=== PATIENT | male | born 1945 | race Caucasian/White ===

== ENCOUNTER 2017-05-10 09:02 | Day surgery (SDC) | payer MEDICARE, BC ==
[~2017-05-10] VITALS: Ht 162.6 cm; Wt 63.6 kg
[~2017-05-10 09:02] MED LIST: ASPI81 PO; METO100T PO; NITR0.4S SL; OMEGCAP2 OR; VITA400C28 PO; VYTO10TA35 PO
[2017-05-10] MEDS ORDERED: IOHEXOL 350 MG/ML 100 ML BTL (for Cath Lab) OTHER ONE (09:03)
[2017-05-10] MEDS ORDERED: ISOS60TA PO (09:33)
[2017-05-10] MEDS ORDERED: NITR0.4S SL (09:33)
[2017-05-10] MEDS ORDERED: ROSU20 PO (09:33)
[2017-05-10] MEDS ORDERED: ASPI-516 CHEW (09:33)
[2017-05-10] MEDS ORDERED: METO25TA3 PO (09:33)
[2017-05-10 09:36] VITALS: BP 126/81; PULSE 63; RESP 17; TEMP 98.8; O2SAT 97
[2017-05-10] MEDS ORDERED: diphenhydrAMINE HCL 50 MG/ML VIAL IV PUSH SCH (09:45)
[2017-05-10] MEDS ORDERED: NS 1000 ML @100 MLS/HR IV SCH (09:45)
[2017-05-10] MEDS ORDERED: ASPIRIN 325 MG TAB PO SCH (09:45)
[2017-05-10 10:45] LABS: AUTOMATED NEUTROPHIL # 3.7 TH/MM3 (1.8-7.7); BASOPHIL % 0.5 % (0.0-2.0); EOSINOPHIL # 0.2 TH/MM3 (0-0.4); EOSINOPHIL % 2.4 % (0.0-4.0); HEMATOCRIT 45.5 % (39.0-51.0); HEMO FLAGS DIFF FINAL; LYMPH % 29.8 % (9.0-44.0); LYMPHOCYTE # 1.9 TH/MM3 (1.0-4.8); MEAN CELL VOLUME 98.9 FL (80.0-100.0); MEAN CORPUSCULAR HEMOGLOBIN 34.1 PG (27.0-34.0); MEAN CORPUSCULAR HGB CONC 34.5 % (32.0-36.0); MONO % 9.7 % (0.0-8.0); NEUT % 57.6 % (16.0-70.0); PLATELET COUNT 244 TH/MM3 (150-450); RED CELL DISTRIBUTION WIDTH 13.1 % (11.6-17.2); WHITE BLOOD COUNT 6.5 TH/MM3 (4.0-11.0)
[2017-05-10 10:56] LABS: APTT (PATIENT) 27.3 SEC (24.3-30.1); INTERNATIONAL NORMALIZED RATIO 1.1 RATIO; PROTHROMBIN TIME - PATIENT 11.5 SEC (9.8-11.6)
[2017-05-10] MEDS ORDERED: HEPARIN-NS/PF INJ 1,000 ML ONE (10:57)
[2017-05-10] MEDS ORDERED: diphenhydrAMINE HCL 50 MG/ML VIAL ONE (10:57)
[2017-05-10] MEDS ORDERED: MIDAZOLAM HCL 2 MG/2 ML VIAL ONE (10:58)
[2017-05-10 11:05] LABS: BICARBONATE 28.9 MEQ/L (21.0-32.0); POTASSIUM 3.7 MEQ/L (3.5-5.1)
--- NOTE | 2017-05-10 13:24 | CATHPROC ---
[facility] HIS Report Study Information Study Number Admission Scheduled Start Study Start [id number] May 10 2017 9:02AM 05/10/2017 May 10 2017 10:45AM [place] [facility] Cardiac Catheterization Admit Source Facility Department Other [facility] - Continuous Improvement Coach Physician and Clinical Staff Initial Mg Chawla Music Director Mariela Livingston RN Music Director Brian ARRIOLA, Prabhakar Arriaza cathlab, cathlab Recorder Shana Nelson,MACHINE SPRAYER TECH2 Scrub Nancy Figueroa,OUTPATIENT SCHEDULER TECH2 Procedures Performed Procedure Location (Site) Vessel Name Angiogram LV LV Ventricle Coronary Angiograms LCA Left Coronary Coronary Angiograms RCA Right Coronary L Heart Cath Equipment Time Margarine Maker Description Size Mfg Part Number Used/Scraped STARCLOSE, VASCULAR CLOSER [id number] 13:03 [employer] FR 6 Used SYSTEM *[id number] TRANSDUCER, TRUWAVE [id number] 10:46 COREAS HORNE * Used W/STOCKCOCK *[id number] 534-620T *[id number] 534-621T *[id number] PIGTAIL ANG. 145 INFINITI 534-652S CATHETER *[id number] 10:46 VetCloud INDUSTRIES PACK, CCL CUSTOM * Used *[id number] 10:46 VetCloud PACER PEN, SKIN DUAL W/ RULER * Used *[id number] 10:46 WeShow MEDICAL SHEATH, FR6.5 PRELUDE 11CM FR 6.5 038ACT Used *[id number] 10:46 [employer]Show MEDICAL WIRE, 3MMJ .035 180CM 180CM Used *[id number] 10:46 NAMIC MANIFOLD, 4 PORT * Used *[id number] 10:46 NYCOMED OMNIPAQUE, 350 MG, 150ML 150ML [id number] Used 12:55 NYCOMED OMNIPAQUE, 350 MG, 50ML 50ML [id number] Used [id number] 10:46 ROBERT MEDICAL BLANKET,WARM AIR CCL * Used *[id number] History: Current Medications Medication Dosage/Unit Route Frequency Last Date/Time Taken ASA CRESTOR NTG SL History: Allergies Allergy Reaction No Known Allergies History: Risk Factors Family History of Hypertension Dyslipidemia Previous DC Previous Heart Failure Premature CAD No Yes No No No Prior Valve Prior PCI Prior PCIDate Prior CABG Surgery No Yes 05/22/2005 No Cerebrovascular Peripheral Artery Chronic Lung On Dialysis Diabetes Disease Disease Disease No No No No No History: CV Disease Selection Items Known CAD History: Stress Tests Stress or Imaging Studies Performed Yes Standard Exercise Stress Test No Stress Echo No Stress Test SPECT No Stress Test CMR Stress Test CMR Result Yes Indeterminant Cardiac CTA Coronary Calcium Score No No History: Other Disease Selection Items CAD History: DC/CV Data Previous Cath Date 05/22/2005 History: Other Current Smoker Method Quit Packs a Day Years Used Pack Years No Cigarettes 11 Years Ago 1 36 36 Labs Hgb (g/dl) Hct (%) RBC (MIL/MM3) WBC (l/cumm) Platelets (thousands) 11.60-17.00 35.00-51.00 4.00-5.90 4.00-11.00 150.00-450.00 15.7 45.5 4.6 6.5 244 Glucose (mg/dl) BUN (mg/dl) Creatinine (mg/dl) BUN:Creatinine (1:x) 74.00-106.00 7.00-18.00 0.50-1.30 10.00-20.00 86 14 1.1 12.7 Na (meq/l) K (meq/l) Cl (meq/l) CO2 (mmol/L) 136.00-145.00 3.50-5.10 98.00-107.00 21.00-32.00 143 3.7 109 28.9 PT (sec) PTT (sec) INR (PTT:PT) 9.80-11.60 24.30-30.10 0.90-1.10 11.5 27.3 1.1 Medication Medication Total Dose (Bolus/Oral) Medication Total Dosage/Unit 1% XYLOCAINE 20 mL FENTANYL 25 mcg HEPARIN 1000 units OXYGEN 2 l/min VERSED 2 mg Medications (Bolus/Oral) Medication Time Given Dosage/Unit Administered By Reason 05/10/2017 12:40:53 1% XYLOCAINE 20 mL Mg Villafana PM 20 mL 1% XYLOCAINE given in lab by Mg Villafana in Right Groin via Subcutaneous. Ordered by Mg Villafana. 05/10/2017 12:41:25 VERSED 2 mg Prabhakar Torres RN PM 2 mg VERSED given in lab by Prabhakar Torres RN in Left Antecubital via Peripheral IV. Ordered by Mg Villafana. 05/10/2017 12:42:39 FENTANYL 25 mcg Prabhakar Torres RN PM 25 mcg FENTANYL given in lab by Prabhakar Torres RN in Left Antecubital via Peripheral IV. Ordered by Mg Nunes. 05/10/2017 12:43:55 HEPARIN 1000 units Mg Villafana PM 1000 units HEPARIN given in lab by Mg Villafana in Right Groin via Peripheral IV. Ordered by Mg Villafana. 05/10/2017 12:45:07 OXYGEN 2 l/min Prabhakar Torres RN PM 2 l/min OXYGEN given in lab by Prabhakar Torres RN via Nasal. Ordered by Mg Villafana. Medication (Drip) Medication Time Given Dosage/Unit Concentration/Unit Diluent (ml) Solution 05/10/2017 10:54:22 IV Solutions 0 mL (IV) 500 NaCl .9 AM Patient arrived on IV Solutions given by cathlab, cathlab in Left Antecubital via Peripheral IV. Pump /Drip Flow = 100 ml/hr using NaCl .9. Ordered by Mg Villafana. Initial Case Assessment Cardiovascular HR NIBP 63 10/61 Edema Present Skin color Skin None Normal Warm Dry Circulatory - Right Pulses Dorsalis Pedis Femoral 3 3 Scale (0,1,2,3,4,d) Circulatory - Left Pulses Dorsalis Pedis Femoral 3 3 Scale (0,1,2,3,4,d) Neurological State Oriented to time-place- Alert Moves all extremities person Respiration - General Respiration Rate SpO2 (%) (B/min) 13 98 Final Case Assessment Cardiovascular HR NIBP 66 105/62 Edema Present Skin color Skin None Normal Warm Dry Circulatory - Right Pulses Dorsalis Pedis Femoral 3 3 Scale (0,1,2,3,4,d) Circulatory - Left Pulses Dorsalis Pedis Femoral 3 3 Scale (0,1,2,3,4,d) Neurological State Oriented to time-place- Alert Moves all extremities person Respiration - General Respiration Rate SpO2 (%) (B/min) 13 96 Chronological Log Time Study Chronological Log 10:53:58 Patient arrived via Bed. 10:53:59 Patient Name, D.O.B, / Armband Verified By R.N. 10:54:00 Consent signed by the physician and the patient and verified by the Continuous Improvement Coach staff. 10:54:03 Pre-op and post- op instructions given; patient acknowledges understanding of instructions. 10:54:08 Patient has been NPO for More than 6Hrs. 10:54:09 Skin Breakdown- 10:54:21 A # 20 IV was noted in the Antecubital (left). Grade = 0 Patient arrived on IV Solutions given by cathlab, cathlab in Left Antecubital via Peripheral IV . Pump/Drip Flow = 100 10:54:22 ml/hr using NaCl .9. Ordered by Mg Villafana. 10:54:27 History and physical on the chart or being dictated. Vitals capture started with the following parameters, Patient=Adult, Interval=5 min, Initial Pr ogyfyy=846 mmHg, 11:00:25 Deflation Rate=5 mmHg, Cuff placed on Left Arm 11:00:40 Reference ECG taken 11:01:04 HR=63 bpm, DFOR=133/61 mmhg, SpO2=98.0 %, Resp=13 B/min, Pain=0, Milvia=10, Knapp=2 Assessment: Initial Case, HR=63 BPM, NIBP=10/61 mmhg, Edema=None, Color=Normal, Skin = Warm, Dr y Right Pulses: Francisco Ped=3, Femoral=3 11:01:29 Left Pulses: Francisco Ped=3, Femoral=3 Neurological: State=Alert, Ox3, THORPE Respiration: Resp=13 B/min, SpO2=98 % 11:06:34 HR=65 bpm, PGGH=592/73 mmhg, SpO2=98.0 %, Resp=16 B/min, Pain=0, Milvia=10, Knapp=2 11:10:58 HR=63 bpm, PIBV=916/80 mmhg, SpO2=98.0 %, Resp=18 B/min, Pain=0, Milvia=10, Knapp=2 11:12:22 Bilateral groins prepped with 2% chlorhexidine, and draped after a 3 minute waiting time. 11:15:57 HR=60 bpm, BPZR=225/67 mmhg, SpO2=97.0 %, Resp=12 B/min, Pain=0, Milvia=10, Knapp=2 11:17:11 Pressure channel 1 zeroed. 11:20:56 HR=60 bpm, LKJP=861/67 mmhg, SpO2=95.0 %, Resp=15 B/min, Pain=0, Milvia=10, Knapp=2 11:25:55 HR=62 bpm, CPHQ=367/74 mmhg, SpO2=95.0 %, Resp=11 B/min, Pain=0, Milvia=10, Knapp=2 11:30:58 HR=64 bpm, EBTX=768/64 mmhg, SpO2=94.0 %, Resp=18 B/min 11:36:00 HR=59 bpm, WOUJ=599/73 mmhg, SpO2=95.0 %, Resp=16 B/min, Pain=0, Milvia=10, Knapp=2 11:41:01 HR=62 bpm, IPDZ=236/64 mmhg, SpO2=96.0 %, Resp=11 B/min, Pain=0, Milvia=10, Knapp=2 11:46:02 HR=58 bpm, RPGD=215/66 mmhg, SpO2=95.0 %, Resp=7 B/min, Pain=0, Milvia=10, Knapp=2 11:51:48 HR=66 bpm, NIBP=85/73 mmhg, SpO2=96.0 %, Resp=12 B/min, Pain=0, Milvia=10, Knapp=2 11:57:11 HR=68 bpm, FRMV=456/80 mmhg, SpO2=96.0 %, Resp=15 B/min, Pain=0, Milvia=10, Knapp=2 12:01:03 HR=62 bpm, HAUC=839/73 mmhg, SpO2=96.0 %, Resp=18 B/min, Pain=0, Milvia=10, Knapp=2 12:06:41 HR=65 bpm, ENAY=904/70 mmhg, SpO2=95.0 %, Resp=8 B/min, Pain=0, Milvia=10, Knapp=2 12:11:07 HR=64 bpm, IMQY=583/65 mmhg, SpO2=95.0 %, Resp=12 B/min, Pain=0, Milvia=10, Knapp=2 12:16:04 HR=65 bpm, CXOM=829/69 mmhg, SpO2=94.0 %, Resp=11 B/min, Pain=0, Milvia=10, Knapp=2 12:21:05 HR=65 bpm, NWXH=617/78 mmhg, SpO2=95.0 %, Resp=16 B/min, Pain=0, Milvia=10, Knapp=2 12:26:33 HR=62 bpm, WQAK=335/69 mmhg, SpO2=95.0 %, Resp=15 B/min, Pain=0, Milvia=10, Knapp=2 12:31:17 HR=66 bpm, VAFL=140/37 mmhg, SpO2=96.0 %, Resp=10 B/min, Pain=0, Milvia=10, Knapp=2 12:34:10 MD arrived. 12:36:08 HR=64 bpm, WQJU=560/75 mmhg, SpO2=94.0 %, Resp=15 B/min, Pain=0, Milvia=10, Knapp=2 Time Out. Correct patient, correct procedure, correct physician, power injector loaded with con trast with surgical team 12:39:58 present. Time Out Concurred by MD and individual staff in procedure. 12:40:00 Case Start 12:40:53 20 mL 1% XYLOCAINE given in lab by Mg Villafana in Right Groin via Subcutaneous. Ordered by Mg Villafana. 12:41:11 HR=61 bpm, XMII=640/66 mmhg, SpO2=96.0 %, Resp=12 B/min, Pain=0, Milvia=10, Knapp=2 12:41:25 2 mg VERSED given in lab by Prabhakar Torres RN in Left Antecubital via Peripheral IV. Ordered by Mg Villafana. 12:42:39 25 mcg FENTANYL given in lab by Prabhakar Torres RN in Left Antecubital via Peripheral IV. Orde red by Mg Villafana. 12:42:56 Access site was Right Femoral Artery. 12:43:15 A SHEATH, FR6.5 PRELUDE 11CM FR 6.5 was advanced into the Fem Art (right) using the Andrey holman Seldinger technique. 12:43:55 1000 units HEPARIN given in lab by Mg Villafana in Right Groin via Peripheral IV. Ordered by Mg Villafana. 12:45:07 2 l/min OXYGEN given in lab by Prabhakar Torres RN via Nasal. Ordered by Mg Villafana. A JL 4.0 INFINITI CATHETER FR 6 was advanced over a wire. OMNIPAQUE, 350 MG, 150ML 150ML was us ed for 12:45:54 injections. 12:46:10 HR=66 bpm, OBTT=518/63 mmhg, SpO2=92 %, Resp=15 B/min, Pain=0, Milvia=10, Knapp=2 Recorded Pressure: Ao, HR=66, Condition=Condition 1 12:46:42 (Aorta) Ao 88/53/69 12:48:32 The LCA was injected and visualized at various angles. OMNIPAQUE, 350 MG, 150ML 150ML used . 12:51:02 Catheter was removed A JR 4.0 INFINITI CATHETER FR 6 was advanced over a wire. OMNIPAQUE, 350 MG, 150ML 150ML was us ed for 12:51:03 injections. 12:51:07 HR=59 bpm, NIBP=99/60 mmhg, SpO2=95.0 %, Resp=13 B/min, Pain=0, Milvia=10, Knapp=2 12:52:41 The RCA was injected and visualized at various angles. OMNIPAQUE, 350 MG, 150ML 150ML used . 12:54:45 Catheter was removed A JR 4.0 INFINITI CATHETER FR 6 was advanced over a wire. OMNIPAQUE, 350 MG, 150ML 150ML was us ed for 12:54:48 injections. 12:56:06 HR=64 bpm, VBRN=573/63 mmhg, SpO2=96.0 %, Resp=15 B/min, Pain=0, Milvia=10, Knapp=2 12:57:18 Catheter was removed A PIGTAIL ANG. 145 INFINITI CATHETER FR 6 was advanced over a wire. OMNIPAQUE, 350 MG, 50ML 50M L was used 12:57:29 for injections. Recorded Pressure: LV, HR=63, Condition=Condition 1 12:59:02 (Left Ventricle) LV 90/0/6 13:00:00 The LV was injected at 10 cc/sec for a total of 30. OMNIPAQUE, 350 MG, 50ML 50ML used. Recorded Pressure: LV, Ao, HR=65, Condition=Condition 1 13:00:41 (Left Ventricle) LV 100/1/7, (Aorta) Ao 93/53/71 13:01:08 HR=66 bpm, MMKA=620/61 mmhg, SpO2=96.0 %, Resp=18 B/min, Pain=0, Milvia=10, Knapp=2 13:02:05 An injection in the Fem Art (right) was made through the SHEATH, FR6.5 PRELUDE 11CM FR 6.5. 13:02:20 Catheter(s) removed without difficulty 13:03:35 STARCLOSE, VASCULAR CLOSER SYSTEM FR 6 placement in the Fem Art (right) 13:06:07 HR=69 bpm, CRAV=273/78 mmhg, SpO2=96.0 %, Resp=16 B/min, Pain=0, Milvia=10, Knapp=2 13:08:45 Case End 13:11:05 Sterile dressing applied to site 13:11:06 No case complications noted. 13:11:07 Cine recording checked. 13:11:09 Bedside Report will be given. 13:11:11 Contrast Scanned 13:11:12 HR=66 bpm, WTKZ=047/62 mmhg, SpO2=96.0 %, Resp=13 B/min, Pain=0, Milvia=10, Knapp=2 13:11:17 A Left Heart Cath was performed. 13:12:24 Vitals capture stopped. Assessment: Final Case, HR=66 BPM, HYOB=804/62 mmhg, Edema=None, Color=Normal, Skin = Warm, Dry Right Pulses: Francisco Ped=3, Femoral=3 13:12:29 Left Pulses: Francisco Ped=3, Femoral=3 Neurological: State=Alert, Ox3, THORPE Respiration: Resp=13 B/min, SpO2=96 % End Study - Contrast Media Used In Study Contrast Total Opened (mL) Total Used (mL) Total Wasted (mL) Omnipaque 60 60 0 End Study - Maximum Contrast Load Max Contrast Load (mL) 289.0 End Study - Radiation Exposure Fluoro Time (minutes) 2.0 End Study - Patient Disposition Complications Transferred To No Telemetry Bed
[2017-05-10] MEDS ORDERED: CARD120C4 PO (13:34)
[2017-05-10] MEDS ORDERED: SODIUM CHLOR 0.9% 250 ML INJ 250 ML IV PRN (14:30)
--- NOTE | 2017-05-10 14:49 | EKG ---
Date Performed: 05/10/2017 Time Performed: 09:39:24 PTAGE: 72 years EKG: Sinus rhythm . Normal ECG No significant change from prior electrocardiogram. PREVIOUS TRACING : 02/17/2012 14.33 DOCTOR: Raji Rausch Interpretating Date/Time 05/10/2017 14:48:28
[2017-05-10] MEDS ORDERED: MISC INFORMATION XX ONE (15:00)
[2017-05-10] MEDS ORDERED: SODIUM CHLOR 0.9% 1000 ML INJ 1,000 ML IV SCH (15:00)
[2017-05-10] MEDS ORDERED: ATROPINE SULFATE 1 MG/ML VIAL IV PUSH PRN (15:00)
[2017-05-10] MEDS ORDERED: BACITRACIN OINT 0.9 GM PKT TOP ONE (15:00)
[2017-05-10] MEDS ORDERED: ONDANSETRON HCL 4 MG/2 ML VIAL IV PUSH PRN (15:00)
[2017-05-10] MEDS ORDERED: ACETAMINOPHEN 500 MG CPLT PO PRN (15:00)
--- NOTE | 2017-05-10 15:01 | MA ---
cc: MG VILLAFANA M.D., WAFIK F. M.D. DATE: 05/10/2017 PROCEDURE 1. Left heart cath. 2. Coronary arteriogram. 3. Left ventriculogram. 4. Right femoral arteriogram. 5. Right femoral arteriotomy site closure using a StarClose device. 6. Conscious sedation for 20 minutes using Versed and fentanyl. LEAD NET SOFTWARE DEVELOPER Mg Villafana MD SNOWMAKER Nancy Dumont RT. EQUIPMENT USED 6-German short sheath, 8.235 J guidewire, 6-German JL-4, JR-4 pigtail diagnostic catheters. INDICATION History of coronary artery disease status post multiple PCI in the past and abnormal nuclear stress study as well as recurrent chest discomfort despite beta-blockers and nitrates for which he was advised because of his current symptoms to proceed with a cardiac catheterization. PROCEDURE After obtaining informed consent, the right groin was prepped in the usual sterile fashion. 15 ccs of 1% lidocaine were used for local anesthesia. Using the modified Seldinger technique the right femoral artery was cannulated and a 6-German short sheath was inserted in the right femoral artery. Using the above-mentioned diagnostic catheters selective coronary angiograms were performed. This was followed by left ventriculogram performed in the CAO view at 30 angle. At the end of the procedure the right femoral system was injected revealing no significant disease and a StarClose device was applied achieving adequate hemostasis. The patient tolerated the procedure well without acute complication at the time of dictation. CARDIAC CATHETERIZATION FINDINGS HEMODYNAMICS Aortic pressure was 90/60 mmHg. Mean aortic pressure was 70 mmHg. There was no gradient across the aortic valve. Left ventricular end-diastolic pressure was 10 mmHg. CORONARIES Left main artery was left sinus of Valsalva and this had a distal tapering of about 30%. Left circumflex artery branched from the left main artery and this was widely patent. The first and second obtuse marginal branches were small with mild luminal irregularities of less than 20%. Distally it gave a decent size OM branch from the mid area that had an ostial of 20%. Further distally it gave two PLV branches and had minute AV groove artery with mild luminal irregularities of less than 30%. There was sluggish flow down all the coronaries including the circumflex. Left anterior descending artery branched from the left main artery and this had three stents in the midportion that had mild in-stent restenosis of about 20-30%. The first diagonal branch had an ostial proximal 50% followed by another sequential lesion of 50% stenosis, then mild luminal irregularities of less than 20%. The LAD gave other diagonal septal branches with mild diffuse irregularities of less than 30%. There was significant sluggish flow down the left anterior descending artery as well. 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 There was some sluggish flow in the RCA as well with swirling of the contrast in the mid to distal portion. The distal area had a bend with about 40% stenosis and some swirling of the contrast. Distally it gave a PDA and PLV arteries that had mild luminal irregularities of less than 20%. Again, there was sluggish flow along the whole RCA system. A high conus branch was within normal limits. Left ventriculogram revealed adequate wall motion, preserved systolic function. Ejection fraction visual estimate is around 60-65%. There was evidence of prolapse of the posterior mitral leaflet with trace mitral regurgitation. CONCLUSION FOR CARDIAC CATHETERIZATION 1. Widely patent stents in the LAD and the RCA with mild disease of the LAD and moderate disease of the first diagonal branch. Mild to moderate diffuse disease of the dominant RCA. 2. Mild disease of the distal left main and the left circumflex artery. 3. Sluggish flow involving all the coronary arteries. 4. Normal left ventricular systolic function. 5. Elevated left ventricular end-diastolic pressure. RECOMMENDATIONS Medical therapy with tight control of risk factors. His metoprolol tartrate will be switched to Cardizem CD at 120 mg daily and will continue on the nitrates in case distal small vessel disease is involved in his symptoms and also causing the sluggish flow. Thank you for allowing me to participate in the care of this very pleasant gentleman. MD AMI Aleman/INA /1:11 PM /2:36 PM
[2017-05-10] MEDS ORDERED: SODIUM CHLORIDE 0.9% FLUSH 10 ML FLUSH IV FLUSH SCH (21:00)
== END 2017-05-10 17:25 | disposition home or self-care (01) ==
LOC: HDOC 09:02 → HDIC 09:03 → HDOC 17:25
PROVIDERS: ATTEND Internal Medicine Interventional Cardiology
DX: I25.10 Atherosclerotic heart disease of native coronary artery without angina pectoris (principal)
CPT/HCPCS: 80048; 85025; 85610; 85730; 93005; 93458; 99152; 99153; C1760; C1769; C1893; G0269; J1200; J1644; J2250; J3010; Q9967